=== PATIENT | male | born 1980 ===

== ENCOUNTER 2022-05-27 02:40 | Emergency (ER) | payer SELFPAY ==
[2022-05-27] MEDS ORDERED: IBUPROFEN 800 MG TAB PO ONE (06:50)
[2022-05-27] MEDS ORDERED: ACETAMINOPHEN 500 MG TAB PO ONE (06:50)
[2022-05-27] MEDS ORDERED: traMADol 50 MG TAB PO ONE (06:50)
--- NOTE | 2022-05-27 07:53 | XRay Report ---
Lumbar spine-3 views INDICATION: back pain. COMPARISON: None. IMPRESSION: Normal alignment. No significant discogenic DJD or facet arthropathy. No acute osseous or soft tissue abnormality. Signer Name: Miguelangel Vitale MD Signed: 05/27/2022 7:49 AM Workstation Name: [id number]
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
[2022-05-27 11:12] VITALS: BP 209/140
== END 2022-05-27 11:00 | disposition home or self-care (01) ==
LOC: ED 02:40
DX: M54.9 Dorsalgia, unspecified (principal); I10 Essential (primary) hypertension; Z91.09 Other allergy status, other than to drugs and biological substances; V89.2XXA Person injured in unspecified motor-vehicle accident, traffic, initial encounter; Y93.89 Activity, other specified; Y92.89 Other specified places as the place of occurrence of the external cause; Y99.8 Other external cause status
CPT/HCPCS: 72100; 99283